=== PATIENT | female | born 1955 | race African-American/Black ===

== ENCOUNTER 2017-04-12 12:57 | Emergency (ER) | payer MEDICARE, OTHER ==
[~2017-04-12] VITALS: Ht 167.6 cm; Wt 70.0 kg
[2017-04-12] MEDS ORDERED: TETANUS, DIPHTHERIA, PERTUSSIS VAC/PF 0.5ML (>7YR OLD) IM ONE (14:00)
[2017-04-12] MEDS ORDERED: KETOROLAC 60MG/2ML VIAL IM ONE (14:15)
[2017-04-12 17:53] VITALS: BP 145/91
[2017-04-12] MEDS ORDERED: ACETAMINOPHEN 500MG TABLET PO ONE (18:15)
== END 2017-04-12 18:36 | disposition home or self-care (01) ==
LOC: ER 13:36
DX: S92.331A Displaced fracture of third metatarsal bone, right foot, initial encounter for closed fracture (principal); S52.121A Displaced fracture of head of right radius, initial encounter for closed fracture; S62.001A Unspecified fracture of navicular [scaphoid] bone of right wrist, initial encounter for closed fracture; M81.0 Age-related osteoporosis without current pathological fracture; W01.0XXA Fall on same level from slipping, tripping and stumbling without subsequent striking against object, initial encounter; Y93.89 Activity, other specified; Y92.89 Other specified places as the place of occurrence of the external cause; Y99.8 Other external cause status
CPT/HCPCS: 29105; 29515; 73080; 73110; 73130; 73562; 73610; 73630; 90471; 90715; 96372; 99284; J1885; A4565